=== PATIENT | female | born 1950 | race Caucasian/White ===

== ENCOUNTER 2017-01-05 09:15 | Emergency (ER) | payer MEDICARE ==
[~2017-01-05] VITALS: Ht 165.1 cm; Wt 93.0 kg
[2017-01-05] MEDS ORDERED: LOTENSIN20 MG PO (09:24)
[2017-01-05] MEDS ORDERED: ATORVASTATIN CA40 M1 PO (09:24)
[2017-01-05 09:44] LABS: BASO # 0.1 10*3/uL (0.0-0.1); EOS # 0.3 10*3/uL (0.0-0.4); EOS % 4.5 % (1.0-4.0); HEMATOCRIT 40.6 % (37.0-47.0); HEMOGLOBIN 13.3 g/dl (12.0-16.0); LYMPH # 2.1 10*3/uL (1.3-4.4); LYMPH % 29.7 % (27.0-41.0); MEAN CORPUSCULAR HGB 28.2 pg (27.0-31.0); MEAN CORPUSCULAR HGB CONC 32.8 g/dl (33.0-37.0); MEAN PLATELET VOLUME 8.7 fl (9.6-12.3); MONO # 0.5 10*3/uL (0.1-1.0); MONO % 6.5 % (3.0-9.0); NEUT % 57.7 % (47.0-73.0); PLATELET COUNT AUTOMATED 227 10*3/uL (130-400); RED BLOOD COUNT 4.72 10*6/uL (4.10-5.10); RED CELL DISTRI WIDTH 13.7 % (0-14.5); WHITE BLOOD COUNT 6.9 10*3/uL (4.8-10.8)
[2017-01-05 09:59] LABS: C-REACTIVE PROTEIN 0.87 MG/DL (0-0.3); POTASSIUM 3.8 mmol/L (3.5-5.1); TOTAL PROTEIN 7.9 gm/dL (6.4-8.2); URIC ACID 8.4 mg/dL (2.6-6.0)
[2017-01-05] MEDS ORDERED: HYDROCODONE BIT1 T11 PO (10:19)
[2017-01-05] MEDS ORDERED: PREDNISONE10 MG PO (10:19)
== END 2017-01-05 10:44 | disposition home or self-care (01) ==
LOC: ED 09:15
PROVIDERS: Registered Nurse
DX: M10.9 Gout, unspecified (principal); N18.3 Chronic kidney disease, stage 3 (moderate); Z88.6 Allergy status to analgesic agent; Z79.899 Other long term (current) drug therapy